=== PATIENT | female | born 1985 | race Caucasian/White ===

== ENCOUNTER 2018-12-10 11:25 | Emergency (ER) | payer BC ==
[2018-12-10 11:43] VITALS: BP 122/86
[2018-12-10] MEDS ORDERED: Azithromycin TAB* 250 MG PO ONE (11:50)
--- NOTE | 2018-12-10 11:59 | UC ---
Complaint Female HPI - HPI Summary HPI Summary: Her partner tested positive chlamydia--not having symptoms but would like to be tested today and receive treatment. - History Of Current Complaint Chief Complaint: UCGeneralIllness Stated Complaint: PERSONAL Time Seen by Provider: 12/10/18 11:38 Hx Obtained From: Patient Hx Last Menstrual Period: mirena IUD in place ?: No Onset/Duration: Sudden Onset Severity Initially: Mild Severity Currently: None Pain Intensity: 0 - Allergies/Home Medications Allergies/Adverse Reactions: Allergies Allergy/AdvReac Type Severity Reaction Status Date / Time No Known Allergies Allergy Verified 03/11/15 17:19 Home Medications: Home Medications Sertraline* [Zoloft*] 75 mg PO DAILY 12/10/18 [History Confirmed 12/10/18] PMH/Surg Hx/FS Hx/Imm Hx Previously Healthy: Yes Other History Of: Negative For: Anticoagulant Therapy - Surgical History Surgical History: None Surgery Procedure, Year, and Place: ERCP 10/12/2012 - Family History Known Family History: Positive: Hypertension - Social History Alcohol Use: Weekly Alcohol Amount: 3 drinks per week Substance Use Type: None Smoking Status (MU): Current Some Day Smoker Type: Cigarettes Amount Used/How Often: 2 cigarettes per week Length of Time of Smoking/Using Tobacco: 8+ years Have You Smoked in the Last Year: Yes Review of Systems All Other Systems Reviewed And Are Negative: Yes Constitutional: Positive: Negative Skin: Positive: Negative Eyes: Positive: Negative ENT: Positive: Negative Respiratory: Positive: Negative Cardiovascular: Positive: Negative Gastrointestinal: Positive: Negative Genitourinary: Positive: Negative Motor: Positive: Negative Neurovascular: Positive: Negative Musculoskeletal: Positive: Negative Neurological: Positive: Negative Psychological: Positive: Negative Is Patient Immunocompromised?: No Physical Exam Triage Information Reviewed: Yes Appearance: Well-Appearing, No Pain Distress, Well-Nourished Vital Signs: Initial Vital Signs Temp 98.4 F 12/10/18 11:38 Pulse 66 12/10/18 11:38 Resp 16 12/10/18 11:38 BP 122/86 12/10/18 11:38 Pulse Ox 98 12/10/18 11:38 Vital Signs Reviewed: Yes Eye Exam: Normal ENT Exam: Normal Dental Exam: Normal Neck exam: Normal Respiratory Exam: Normal Cardiovascular Exam: Normal Abdominal Exam: Normal Abdomen Description: Positive: Nontender, No Organomegaly, Soft, Other: - no vaginal discharge or other symptoms present Complaint Female Dx - Course Course Of Treatment: hx obtained, exam performed ,meds reviewed, exposed to partner with positive chlamydia. patient was tested and treated with 1000 mg of azithromycin - Differential Dx/Diagnosis Provider Diagnosis: Chlamydia contact, treated Discharge - Sign-Out/Discharge Documenting (check all that apply): Patient Departure All imaging exams completed and their final reports reviewed: No Studies - Discharge Plan Condition: Stable Disposition: HOME Patient Education Materials: Chlamydia (ED) Referrals: No Primary Care Phys,NOPCP [Primary Care Provider] - Additional Instructions: 1. you have been treated for chlaymdia today 2. We will run the test today. 3. no intercourse for 2 weeks 4. FOllow up as needed. - Billing Disposition and Condition Condition: STABLE Disposition: Home
[2018-12-12 13:26] LABS: Neisseria gonorrhoeae (GC) RNA Negative (Negative)
== END 2018-12-10 12:17 | disposition home or self-care (01) ==
LOC: UCCORT 11:25
DX: Z20.2 Contact with and (suspected) exposure to infections with a predominantly sexual mode of transmission (principal)
CPT/HCPCS: 87491; 87591; 99202; A9270-GY; G0463

== ENCOUNTER 2019-03-11 17:37 | Emergency (ER) | payer BC, OTHER ==
--- OUTSIDE RECORDS SUMMARY | 2019-03-11 17:46 | XMS REPORT | Continuity of Care Document ---
:1985 Author Organization [facility] Address [address] [place] [address] Phone Care Team Providers Name Role Phone Karlene Kaufman NP Unavailable Unavailable Allergies, Adverse Reactions, Alerts Substance Reaction Status No Known Allergies Active Medications Medication Instructions Dosage Effective Dates Status Comments (start - stop) Mirena 20 mcg/24 hr (5 Insert IU - Active years) intrauterine device ZOLOFT (unknown Not Available - Active strength) MULTIVITAMINS (unknown Not Available - Active strength) Problems Condition Effective Dates (start - Clinical Status Comments stop) Human immunodeficiency virus [HIV] - counseling Low grade intrepith lesion cyto smr crvx (LGSIL) Cervical high risk HPV DNA test positive Encounter for routine checking of intrauterine contracep dev Encounter for oth screening for malignant neoplasm of breast Encounter for screening for malignant neoplasm of cervix Encntr screen for infections w sexl mode of transmiss 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) (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) w/o 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 Candidiasis of vulva and vagina Encounter for routine checking of intrauterine contracep dev Human immunodeficiency virus [HIV] - counseling Encounter for screening for human - immunodeficiency virus Encntr screen for infections w sexl mode of transmiss Acute vaginitis Encntr for removal and reinsertion of uterin contracep dev STI Screening Procedures Procedure Date No information Results Test Name Date and Time Measure Units Reference Range Abnormal Flag Status Comments No information Advance Directives Directive Yes / No Effective Date File Name No information Encounters Encounter Practice Location Reason(s) Diagnoses Date Provider Providers Description For Visit Copied on Encounter [facility] [place] 6. Southern 9 [address] [place] [facility], [address] [place], [address], [place], [place], [address]. [id number], tel:[phone] [place] [phone] tel:[phone] [facility]- [facility] Referring [facility] [place] immunodeficiency 1-. Provider: Claire virus [HIV] 9 [address] counselingLow grade [place] [facility], [facility], [address], [address] [place] cyto smr crvx [place], [place] [address], [place], [place], (LGSIL)Cervical [place], [place], [place], [place] [address]. [place], [address]. [id number], test tel:[phone] tel:[phone] [place] positiveEncounter [phone] tel:[phone] for routine [id number] checking of intrauterine contracep dev [facility] Encounter for oth [facility] Referring [facility] [place] screening for . Provider: Claire malignant neoplasm 9 [address] of breastEncounter [place] [facility], [facility], [address], [address] [place] malignant neoplasm [place], [place] [address], [place], [place], of cervixEncntr [place], [place] [address]. [place], [address]. [id number], infections w sexl tel:+[phone] tel:[phone] [place] mode of [phone] tel:[phone] transmissEncntr for [id number] shaper hand exam (general) (routine) w/o 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Candidiasis of vulva and vaginaEncounter for routine checking of intrauterine contracep dev [facility] [place] Referring [facility] [place] immunodeficiency 7. Provider: Claire virus [HIV] 9 [address] [place] counselingEncounter [place], [address], [address], [address] [place] human [place], St, St, [place], [place], [place], [place] [address]. [place], [address]. [id number], for infections w tel:+[phone] tel:[phone] [place] sexl mode of [phone] tel: transmissAcute [id number] vaginitis [facility] Encntr for removal [facility] [place] and reinsertion of Mel. [facility] uterin contracep 6 [address] [place], [address] [place], , [place], [address], [id number], [place]. tel: [phone] [facility] STI Screening [place] [facility] [place] 0-201 [place]. Southern 5 [address] [place], [address] [place], St, [place], [address]. [id number], tel: [phone] tel:[phone] Family History Family Member Diagnosis Age At Onset 1st degree relative No hx of cancer of breast, colon, endometrium or ovary 1st degree relative No hx of coronary heart disease (female <65, male <55) Father Venous thromboembolism 58 Immunizations Vaccine Date Status Comments No information Payers Payer name Insurance type Covered constitution party ID Authorization(s) [facility] [id number] Social History Type Description Quantity Date Captured Comments Alcohol Use Details Unknown Caffeine Use Details Unknown Tobacco Use Status Smoking Status Current some day smoker Sex Female Vital Signs Date / Height Weight BMI Pulse Blood Temperature Respiratory Body Head BMI Pulse Inhaled Time: Rate Pressure Rate Surface Circumference percentile Ox Ox Area No information Chief Complaint And Reason For Visit No information Reason For Referral Reason For Referral No information Plan Of Treatment Date Type Action Status Goal Tobacco cessation counseling completed History Of Present Illness Encounter Date Complaint History Of Present Illness No information Functional Status Date Functional Assessment No information Medications Administered Medication Instructions Dosage Effective Dates (start - stop) Status Comments No information Instructions Date Instruction Additional Information No information Assessments Type Assessment Date No information Goals Health Concern Goal Type Priority Status Date No information Medical Equipment Description Device [place] Device Identifier Effective Dates (start - stop ) Status No information Mental Status Date Cognitive Assessment No information Health Concerns Observation Date No information Concern Status Date No information
--- OUTSIDE RECORDS SUMMARY | 2019-03-11 17:46 | XMS REPORT | Continuity of Care Document ---
:1985 Author Organization [facility] Address [address] [place] [address] Phone Care Team Providers Name Role Phone Karlene Kaufman NP Unavailable Unavailable Allergies, Adverse Reactions, Alerts Substance Reaction Status No Known Allergies Active Medications Medication Instructions Dosage Effective Status Comments Dates (start - stop) Mirena 20 mcg/24 hr Insert IU - Active (5 years) intrauterine device ZOLOFT (unknown Not Available - Active strength) MULTIVITAMINS Not Available - Active (unknown strength) fluconazole 150 mg take 1 tablet by 150 MG - No Longer tablet oral route once Active Problems Condition Effective Dates (start - Clinical [...] w sexl mode of transmiss 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 Other Fiber Locking Supervisor.Svc. STI Results Test Name Date and Time Measure Units Reference Range Abnormal Flag Status Comments No information Advance Directives Directive Yes / No Effective Date File Name No information Encounters Encounter Practice Location Reason(s) Diagnoses Date Provider Providers Description For Visit Copied on Encounter [facility] Referring [facility] [place] immunodeficiency 1-[place]. Provider: [place] virus [HIV] 9 [address] counselingLow grade [place] [facility], [facility], [address], [address] [place] cyto smr crvx [place], [place] [address], [place], [place], (LGSIL)Cervical [place], [place], [place], [place] [address]. [place], [address]. [id number], test tel:+[phone] tel:[phone] [place] positiveEncounter [phone] tel:[phone] for routine 600180 checking of intrauterine contracep dev [facility] Encounter for oth Par Referring [facility] [place] screening for Karlene. Provider: [place] malignant neoplasm 9 [address] of breastEncounter [place] [facility], [facility], [address], [address] [place] malignant neoplasm [place], [place], [place], [place], of cervixEncntr [place], [place] [address]. [place], [address]. [id number], infections w sexl tel:+[phone] tel:[phone] [place] mode of [id number] tel:[phone] transmissEncntr for [id number] bait tier exam (general) (routine) w/o 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Candidiasis of vulva and vaginaEncounter for routine checking of intrauterine contracep dev [facility] Human [place] Referring Parenthood [place] immunodeficiency 7-201 [place]. Provider: [place] virus [HIV] 9 [address] counselingEncounter [place] [facility], [address] [place] [address], [address], [address] [place] W [place] human [place], St, St, [place], [place], [place], [place] [address]. [place], [address]. [id number], for infections w tel:+60 tel:+607 [place] sexl mode of [phone] tel:+72 transmissAcute 836157 vaginitis [facility] Encntr for removal [facility] [place] and reinsertion of Mel. [facility] uterin contracep 6 [address] [place], [address] [place], , [place], [address], [id number], [place]. [place] tel:[phone] [facility] STI Screening [place] [facility] [place] 0-201 [place]. Southern 5 [address] [place], [address] [place], , [place], [address]. [id number], tel:+60 [place] [phone] tel:[phone] Family History Family Member Diagnosis Age At Onset 1st degree relative No hx of cancer of breast, colon, endometrium or ovary 1st degree relative No hx of coronary heart disease (female <65, male <55) Father Venous thromboembolism 58 Immunizations Vaccine Date Status Comments No information Payers Payer name Insurance type Covered democrat ID Authorization(s) [facility] [id number] Social History Type Description Quantity Date Captured Comments Alcohol Use Details Unknown Caffeine Use Unknown Details Tobacco Use Status Occasional cigarette smoker Smoking Status Current some day smoker Smoking Tobacco Use Cigarette: No Details Available Cigarette: 1 Cigarettes per day Details Sex Female Vital Signs Date / Height Weight BMI Pulse Blood Temperature Respiratory Body Head BMI Pulse Inhaled Time: Rate Pressure Rate Surface Circumference percentile Ox Ox Area 67.00 234.00 36.6 in lbs 5 mm[Hg] 1:55 kg/m PM eter (2) Chief Complaint And Reason For Visit No [...] Information No information Assessments Type Assessment Date assessment Human immunodeficiency virus [HIV] counseling assessment Low grade intrepith lesion cyto smr crvx (LGSIL) assessment Cervical high risk HPV DNA test positive assessment Encounter for routine checking of intrauterine contracep dev Goals Health Concern Goal Type Priority Status Date No information Medical Equipment Description Device [place] Device Identifier Effective Dates (start - stop ) Status No information Mental Status Date Cognitive Assessment No information Health Concerns Observation Date No information Concern Status Date No information
--- OUTSIDE RECORDS SUMMARY | 2019-03-11 17:46 | XMS REPORT | Continuity of Care Document ---
:1985 Author Organization [facility] Address [address] [place] [address] Phone Care Team Providers Name Role Phone Karlene Kaufman NP Unavailable Unavailable Allergies, Adverse Reactions, Alerts Substance Reaction Status No Known Allergies Active Medications Medication Instructions Dosage Effective Dates Status Comments (start - stop) fluconazole 150 mg take 1 tablet by 150 MG - Active tablet oral route once Mirena 20 mcg/24 hr Insert IU - Active (5 years) intrauterine device ZOLOFT (unknown Not Available - Active strength) MULTIVITAMINS Not Available - Active (unknown strength) Problems Condition Effective Dates (start - Clinical Status Comments stop) Encounter for oth screening for malignant neoplasm of breast Encounter for screening for malignant neoplasm of cervix Encntr screen for infections w sexl mode of transmiss 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/o 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 Candidiasis of vulva and vagina Encounter for routine checking of intrauterine contracep dev Human immunodeficiency virus [HIV] - counseling Encounter for screening for human - immunodeficiency virus Encntr screen for infections w sexl mode of transmiss Acute vaginitis Encntr for removal and reinsertion of uterin contracep dev STI Screening Procedures Procedure Date N.GONORRHOEAE, DNA, AMP PROB CHYLMD DNA, AMP PROBE SUREPATH HPV, DNA, AMP PROBE HIGH RISK TRICHOMONAS VAGIN, DIR PROBE PREV VISIT, EST, AGE 18-39 BLOOD PRESSURE Height/Weight BREAST EXAM OTHER Medical Services VAGINITIS RX Contraceptive Children'S Attendant.Svc. Other Children'S Attendant.Svc. STI WET SMEAR ASSAY OF BODY FLUID-PH Results Test Name Date and Time Measure Units Reference Range Abnormal Flag Status Comments Panel Description: Wet Mount Final Wet Mount 19:07:43 Hyphae/Cari: yesBudding yeast: Final noTrich: noClue cells: noWBCs: yes (few)Amine/Whiff test: negativepH: 4.0 NOTE: This patient has pending results not included in this document. Advance Directives Directive Yes / No Effective Date File Name No information Encounters Encounter Practice Location Reason(s) Diagnoses Date Provider Providers Description For Visit Copied on Encounter PREV VISIT, [facility] Referring EST, AGE [facility] [place] Person screening for Karlene. Provider: 18-39 [facility] Visit malignant neoplasm 9 [address] (chief of breastEncounter [facility], [facility], [facility] complaint) for screening for St, [address] [place] Vaginal malignant neoplasm [place], [place] [address], [place], [place], a/o [place] of cervixEncntr [place], [place] [address]. [place], [address]. [id number], (chief infections w sexl tel:+[phone] tel:[phone] [place] complaint) mode of [id number] tel:[phone] transmissEncntr for [id number] converter operator exam (general) (routine) w/o 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Candidiasis of vulva and vaginaEncounter for routine checking of intrauterine contracep dev [facility] Human [place] Referring Parenthood [place] immunodeficiency 7 [place]. Provider: [facility] virus [HIV] 9 [address] counselingEncounter [place], [address], [address], [address] [place] human [place], St, St, [place], [place], [place], [place] [address]. [place], [address]. [id number], for infections w tel: tel:+ [place] sexl mode of [phone] tel: transmissAcute [id number] vaginitis [facility] Encntr for removal [facility] [place] and reinsertion of Mel. [facility] uterin contracep 6 [address] [place], [address] [place], , [place], [address], [id number], [place]. [place] tel: [phone] [facility] STI Screening [place] [facility] [place] 0-201 [place]. Southern 5 [address] [place], [address] [place], , [place], [address]. [id number], tel: [phone] tel: [phone] Family History Family Member Diagnosis Age At Onset 1st degree relative No hx of cancer of breast, colon, endometrium or ovary 1st degree relative No hx of coronary heart disease (female <65, male <55) Father Venous thromboembolism 58 Immunizations Vaccine Date Status Comments No information Payers Payer name Insurance type Covered constitution party ID Authorization(s) [facility] [id number] Social History Type Description Quantity Date Captured [...] percentile Ox Ox Area 67.00 234.00 36.6 130/90 2019 in lbs 5 mm[Hg] 6:03 kg/m PM eter (2) Chief Complaint And Reason For Visit Most recent encounter only, dated '01/11/2019 17:30'. Well Person Visit ( chief complaint)Vaginal a/o Vulvar Burning (chief complaint). Description: Onset : 1 week ago. Location is vaginal and vulvar. The patient describes it as burning. The problem is with no change. Denies aggravating factors. Denies relieving factors. Pertinent negatives include bleeding, discharge, dyspareunia , parasites or persistent diarrhea. Reason For Referral Reason For Referral No information Plan Of Treatment Date Type Action Status No information History Of Present Illness Encounter Date Complaint History Of Present Illness Vaginal a/o Vulvar Burning Onset: 1 week ago. Location is vaginal and vulvar. The patient describes it as burning. The problem is with no change. Denies aggravating factors. Denies relieving factors. Pertinent negatives include bleeding, discharge, dyspareunia, parasites or persistent diarrhea. 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
--- OUTSIDE RECORDS SUMMARY | 2019-03-11 17:46 | XMS REPORT | Continuity of Care Document ---
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 [address] [place], [address] [place], St, [place], [address]. [id number], tel:[phone] tel:[phone] [facility] Encounter for oth Par Referring [facility] [place] screening for 8Novia. Provider: Claire malignant neoplasm 9 [address] of breastEncounter [place], [place], [address], [address] malignant neoplasm [place], [address], St, [place], of cervixEncntr [place], [place] [address]. [place], [address]. [id number], infections w sexl tel:[phone] tel:[phone] [place] mode of [phone] tel:[phone] transmissEncntr for [id number] farmworker cranberry exam (general) (routine) w/o 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Candidiasis of vulva and vaginaEncounter for routine checking of intrauterine contracep dev [facility] Human [place] Referring Parenthood [place] immunodeficiency 7 Cielo. Provider: [facility] virus [HIV] 9 [address] counselingEncounter [place], [address] [place], [address], [address] [place] human [place], St, St, [place], [place], [place], [place] [address]. [place], [address]. [id number], for infections w tel:[phone] tel:[phone] [place] sexl mode of [phone] tel:[phone] transmissAcute [id number] vaginitis [facility] Encntr for removal [facility] [place] and reinsertion of Mel. [facility] uterin contracep 6 [address] [place], [address], [address] [place], St, [place], [address], [id number], [place]. [place] tel:[phone] [facility] STI Screening [facility] [place] [address]. Southern 5 [address] [place], [address], [address] [place], St, [place], [address]. [id number], tel:[phone] [phone] Family History Family Member Diagnosis Age At Onset 1st degree relative No hx of cancer of breast, colon, endometrium or ovary 1st degree relative No hx of coronary heart disease (female <65, male <55) Father Venous thromboembolism 58 Immunizations Vaccine Date Status Comments No information Payers Payer name Insurance type Covered alliance party ID Authorization(s) [facility] [id number] Social History Type Description Quantity Date Captured [...] Plan Of Treatment Date Type Action Status Appointment JUAN NATHAN BOOKED History Of Present Illness Encounter Date Complaint History Of Present Illness No information Functional Status Date Functional Assessment No information Medications Administered Medication Instructions Dosage Effective Dates (start - stop) Status Comments No information Instructions Date Instruction Additional Information No information Assessments Type Assessment Date No information Goals Health Concern Goal Type Priority Status Date No information Medical Equipment Description Device [place] Device Identifier Effective Dates (start - stop ) Status No information Mental Status Date Cognitive Assessment No information Health Concerns Observation Date No information Concern Status Date No information
--- OUTSIDE RECORDS SUMMARY | 2019-03-11 17:46 | XMS REPORT | Continuity of Care Document ---
:1985 Author Organization [facility] Address [address] [place] [address] Phone Care Team Providers Name Role Phone [...] w sexl mode of transmiss Encntr for nurse obgyn exam (general) (routine) w/o 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 Candidiasis [...] Visit Copied on [facility] 9 [address] [place], [address] [place], St, [place], [place], [address]. [id number], tel:[phone] tel:[phone] [facility] Encounter for oth Par [facility]erring [facility] [place] screening for 8Novia. Provider: Claire malignant neoplasm 9 [address] of breastEncounter [place], [place], [address], [address] malignant neoplasm [place], [address], St, [place], of cervixEncntr [place], [place] [address]. [place], [address]. [id number], infections w sexl tel:[phone] tel:[phone] [place] mode of [phone] [id number] tel:[phone] transmissEncntr for [id number] nurse obgyn exam (general) (routine) w/o 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Candidiasis of vulva and vaginaEncounter for routine checking of intrauterine contracep dev [facility] [place] Referring Parenthood [place] immunodeficiency 7 Cielo. Provider: [facility] virus [HIV] 9 [address] counselingEncounter [place], [address] [place], [address], [address] W Ruby human [place], St, St, [place], [place], [place], [place] [address]. [place], [address]. [id number], for infections w tel:[phone] tel:[phone] [place] sexl mode of [phone] tel:[phone] transmissAcute [id number] vaginitis [facility] Encntr for removal [facility] [place] and reinsertion of Mel. [facility] uterin contracep 6 [address] [place], [address], [address] [place], St, [place], [address], [id number], [place]. [place] tel:[phone] [facility] [place] [address]. [facility] 5 [address] [place], [address], [address] [place], St, [place], [address]. [id number], tel:[phone] [phone] Family History Family Member Diagnosis Age At Onset 1st degree relative No hx of cancer of breast, colon, endometrium or ovary 1st degree relative No hx of coronary heart disease (female <65, male <55) Father Venous thromboembolism 58 Immunizations Vaccine Date Status Comments No information Payers Payer name Insurance type Covered alliance party ID Authorization(s) [facility] [id number] Social History Type Description Quantity Date Captured [...] Date No information Medical Equipment Description Device [place] Device Identifier Effective Dates (start - stop ) Status No information Mental Status Date Cognitive Assessment No information Health Concerns Observation Date No information Concern Status Date No information
[2019-03-11 18:00] VITALS: BP 121/70
--- NOTE | 2019-03-11 18:35 | UC ---
Skin Complaint HPI - HPI Summary HPI Summary: C/O swelling at the piercing in the left ear. No fevers. Mild pain. no warmth. - History of Current Complaint Chief Complaint: UCEar Time Seen by Provider: 03/11/19 18:20 Stated Complaint: LEFT EAR COMPLAINT Hx Obtained From: Patient Hx Last Menstrual Period: IUD ?: No Onset/Duration: Gradual Onset, Lasting Weeks - 4, Still Present Onset Severity: Mild Current Severity: Mild Pain Intensity: 2 Location: Ear (Left) Character: Redness Alleviating Factor(s): Other - removed ear ring Associated Signs & Symptoms: Positive: Negative Related History: Trauma - ear piercing - Allergy/Home Medications Allergies/Adverse Reactions: Allergies Allergy/AdvReac Type Severity Reaction Status Date / Time No Known Allergies Allergy Verified 03/11/19 18:14 Home Medications: Home Medications Levonorgestrel (Iud) [Mirena IUD] 20 mcg IU SEE INSTRUCTIONS 03/11/19 [History Confirmed 03/11/19] PMH/Surg Hx/FS Hx/Imm Hx Previously Healthy: Yes Other History Of: Negative For: Anticoagulant Therapy - Surgical History Surgical History: None Surgery Procedure, Year, and Place: ERCP 10/12/2012 - Family History Known Family History: Positive: Hypertension, Diabetes - Social History Occupation: Employed Full-time Lives: Alone Alcohol Use: None Alcohol Amount: 3 drinks per week Substance Use Type: None Smoking Status (MU): Former Smoker Type: Cigarettes Amount Used/How Often: 2 cigarettes per week Length of Time of Smoking/Using Tobacco: 8+ years Have You Smoked in the Last Year: Yes Review of Systems All Other Systems Reviewed And Are Negative: Yes Skin: Positive: Other - lump in the left ear Physical Exam Triage Information Reviewed: Yes Appearance: Well-Appearing, No Pain Distress, Well-Nourished Vital Signs: Initial Vital Signs Temp 97.9 F 03/11/19 17:57 Pulse 58 03/11/19 17:57 Resp 16 03/11/19 17:57 BP 121/70 03/11/19 17:57 Pulse Ox 100 03/11/19 17:57 Vital Signs Reviewed: Yes Eyes: Positive: Conjunctiva Clear ENT: Positive: Pharynx normal, TMs normal, Other - prominence inferior to the piercing. Neck exam: Normal Respiratory Exam: Normal Cardiovascular Exam: Normal Musculoskeletal Exam: Normal Neurological Exam: Normal Psychological Exam: Normal Skin: Positive: Significant Lesion(s) - Pyogenic granuloma left ear piercing. Images Head: 1 - 3mm pyogenic granuloma Course/Dx - Differential Diagnoses - Skin Complaint Differential Diagnoses: Cellulitis, Contact Dermatitis, Scarl[place] - Diagnoses Provider Diagnosis: Pyogenic granuloma of skin Discharge ED - Sign-Out/Discharge Documenting (check all that apply): Patient Departure All imaging exams completed and their final reports reviewed: No Studies - Discharge Plan Condition: Stable Disposition: HOME Prescriptions: Betamethasone Dipropionate [Betamethasone Diprop Augmented] 1 gm TP BID #15 gel..gram. Mupirocin 2% OINT* [Bactroban 2 % Oint*] 1 applic TOPICAL TID #1 tube Patient Education Materials: Mupirocin (On the skin), Betamethasone Dipropionate, Augmented (On the skin) Referrals: Meenakshi Graham, BUSINESS SERVICES ADMINISTRATOR [Primary Care Provider] - Additional Instructions: If not improving or resolving, see if Meenakshi would inject some cortisone into it. - Billing Disposition and Condition Condition: STABLE Disposition: Home
== END 2019-03-11 18:47 | disposition home or self-care (01) ==
LOC: UCCORT 17:37
DX: L98.0 Pyogenic granuloma (principal); Z87.891 Personal history of nicotine dependence
CPT/HCPCS: 99212; G0463

== ENCOUNTER 2019-04-27 08:08 | Emergency (ER) | payer BC ==
[2019-04-27 08:26] VITALS: BP 121/74
--- NOTE | 2019-04-27 08:39 | ED ---
Throat Pain/Nasal Congestion - HPI Summary HPI Summary: 33 yr old female with the complaint of sinus pressure, post nasal drip, coughing. Onset a week ago, and she has had increasing pressure in the sinuses , and thick mucous and some blood in mucous from the nose at times. She has chills. No dizziness. No other complaints. - History of Current Complaint Chief Complaint: UCGeneralIllness Time Seen by Provider: 04/27/19 08:31 - Allergies/Home Medications Allergies/Adverse Reactions: Allergies Allergy/AdvReac Type Severity Reaction Status Date / Time No Known Allergies Allergy Verified 04/27/19 08:26 PMH/Surg Hx/FS Hx/Imm Hx Endocrine/Hematology History: Denies: Hx Anticoagulant Therapy, Hx Diabetes, Hx Thyroid Disease Cardiovascular History: Denies: Hx Hypertension, Hx Pacemaker/ICD Respiratory History: Denies: Hx Asthma, Hx Chronic Obstructive Pulmonary Disease (COPD), Hx Sleep Apnea GI History: Reports: Hx Gall Bladder Disease, Other GI Disorders - Pancreatitis Denies: Hx Ulcer History: Reports: Other Problems/Disorders - UTI 2 WEEK AGO Denies: Hx Renal Disease Sensory History: Denies: Hx Contacts or Glasses, Hx Hearing Aid Opthamlomology History: Denies: Hx Contacts or Glasses Neurological History: Denies: Hx Seizures Psychiatric History: Reports: Hx Anxiety - IN THE PAST, Hx Depression - IN THE PAST Denies: Hx Panic Disorder, Hx Substance Abuse - Surgical History Surgery Procedure, Year, and Place: ERCP 10/12/2012 Hx Anesthesia Reactions: No - Immunization History Date of Tetanus Vaccine: Unk Date of Influenza Vaccine: None Infectious Disease History: No Infectious Disease History: Denies: Hx Clostridium Difficile, Hx Hepatitis, Hx Human Immunodeficiency Virus (HIV), Hx of Known/Suspected MRSA, Hx Shingles, Hx Tuberculosis, Hx Known/ Suspected VRE, Hx Known/Suspected VRSA, History Other Infectious Disease, Traveled Outside the [place] in Last 30 Days - Family History Known Family History: Positive: Hypertension, Diabetes - Social History Occupation: Employed Full-time Alcohol Use: Occasionally Alcohol Amount: 3 drinks per week Substance Use Type: Reports: None Smoking Status (MU): Former Smoker Type: Cigarettes Amount Used/How Often: 2 cigarettes per week Length of Time of Smoking/Using Tobacco: 8+ years Have You Smoked in the Last Year: Yes Review of Systems Positive: Chills Positive: Other - sinus infection, pain All Other Systems Reviewed And Are Negative: Yes Physical Exam Triage Information Reviewed: Yes Vital Signs On Initial Exam: Initial Vitals Temp Pulse Resp BP Pulse Ox 97.3 F 75 16 121/74 100 04/27/19 08:21 04/27/19 08:21 04/27/19 08:21 04/27/19 08:21 04/27/19 08:21 Vital Signs Reviewed: Yes Appearance: Positive: Well-Appearing, No Pain Distress Skin: Positive: Warm, Skin Color Reflects Adequate Perfusion Head/Face: Positive: Normal Head/Face Inspection Eyes: Positive: EOMI ENT: Positive: Nasal congestion, Nasal drainage, TM red - right with erythema, Sinus tenderness Neck: Positive: Supple, Nontender Respiratory/Lung Sounds: Positive: Clear to Auscultation, Breath Sounds Present Cardiovascular: Positive: RRR. Negative: Murmur Abdomen Description: Negative: Distended Musculoskeletal: Positive: Strength/ROM Intact Neurological: Positive: Sensory/Motor Intact, Alert, Oriented to Person Place, Time, CN Intact II-III, Normal Gait, Speech Normal Psychiatric: Positive: Normal Diagnostics - Vital Signs Vital Signs Temp Pulse Resp BP Pulse Ox 04/27/19 08:21 97.3 F 75 16 121/74 100 - Laboratory Lab Statement: Any lab studies that have been ordered have been reviewed, and results considered in the medical decision making process. EENT Course/Dx - Course Course Of Treatment: 33 yr old with sinusitis. PLan Augmentin DC home. - Diagnoses Provider Diagnoses: Sinusitis Discharge ED - Sign-Out/Discharge Documenting (check all that apply): Patient Departure All imaging exams completed and their final reports reviewed: No Studies - Discharge Plan Condition: Good Disposition: HOME Prescriptions: Amoxicillin/Clavulanate TAB* [Augmentin TAB 875*] 875 mg PO BID #20 tab Patient Education Materials: Sinusitis (ED) Referrals: Meenakshi Graham NP [Primary Care Provider] - 2 Days - Billing Disposition and Condition Condition: GOOD Disposition: Home
== END 2019-04-27 08:40 | disposition home or self-care (01) ==
LOC: UCCORT 08:08
DX: J32.9 Chronic sinusitis, unspecified (principal); R09.82 Postnasal drip; R05 Cough; Z87.891 Personal history of nicotine dependence
CPT/HCPCS: 99212; G0463

== ENCOUNTER 2019-06-17 15:44 | Emergency (ER) | payer BC ==
[2019-06-17 16:36] VITALS: BP 129/66
[2019-06-17] MEDS ORDERED: Acetaminophen TAB* 325 MG PO ONE (16:45)
--- NOTE | 2019-06-17 17:01 | UC ---
FLU HPI - HPI Summary HPI Summary: Pt presents with c/o sudden onset of fever, chills body aches, cough, "burning in chest" and ST X 2 days. - History of Current Complaint Chief Complaint: UCGeneralIllness Stated Complaint: FLU SYMPTOMS Time Seen by Provider: 06/17/19 16:40 Hx Obtained From: Patient Hx Last Menstrual Period: does not have periods d/t IUD ?: No Onset/Duration: Sudden Onset, Lasting Days, Still Present Severity Currently: Mild Severity Initially: Moderate Pain Intensity: 7 Associated Signs & Symptoms: Positive: Fever, Myalgia, Cough, Sore Throat, Headache Related Hx: Possible Flu/Infectious Exposure - Risk Factors Influenza Risk Factors: Negative - Allergy/Home Medications Allergies/Adverse Reactions: Allergies Allergy/AdvReac Type Severity Reaction Status Date / Time No Known Allergies Allergy Verified 06/17/19 16:36 Home Medications: Home Medications Multivitamin [Multivitamins] 1 cap PO DAILY 06/17/19 [History Confirmed 06/17/19 ] PMH/Surg Hx/FS Hx/Imm Hx Previously Healthy: Yes Other History Of: Negative For: Anticoagulant Therapy - Surgical History Surgical History: Yes Surgery Procedure, Year, and Place: ERCP 10/12/2012. [place] - Family History Known Family History: Positive: Hypertension, Diabetes - Social History Occupation: Employed Full-time Lives: With Family Alcohol Use: Rare Alcohol Amount: 3 drinks per week Substance Use Type: None Smoking Status (MU): Former Smoker Type: Cigarettes Amount Used/How Often: 2 cigarettes per week Length of Time of Smoking/Using Tobacco: 8+ years Have You Smoked in the Last Year: Yes Review of Systems All Other Systems Reviewed And Are Negative: Yes Constitutional: Positive: Fever, Chills, Fatigue Skin: Positive: Negative Eyes: Positive: Negative ENT: Positive: Sore Throat Respiratory: Positive: Cough Cardiovascular: Positive: Negative Gastrointestinal: Positive: Negative Genitourinary: Positive: Negative Motor: Positive: Negative Neurovascular: Positive: Negative Musculoskeletal: Positive: Myalgia Neurological: Positive: Negative Psychological: Positive: Negative Is Patient Immunocompromised?: No Physical Exam Triage Information Reviewed: Yes Appearance: Ill-Appearing, Other: - pt was diaphoretic, appeared ill, c/o burning chest. Vital Signs: Initial Vital Signs Temp 102.6 F 06/17/19 16:30 Pulse 116 06/17/19 16:30 Resp 18 06/17/19 16:30 BP 129/66 06/17/19 16:30 Pulse Ox 100 06/17/19 16:30 Vital Signs Reviewed: Yes Eye Exam: Normal ENT: Positive: Pharyngeal erythema Dental Exam: Normal Neck exam: Normal Respiratory Exam: Normal Respiratory: Positive: Normal breath sounds Cardiovascular Exam: Normal Cardiovascular: Positive: Tachycardia Musculoskeletal Exam: Normal Neurological Exam: Normal Psychological Exam: Normal Skin Exam: Normal Flu Course/Dx - Differential Dx/Diagnosis Differential Diagnosis/HQI/PQRI: Bronchitis, Influenza, Pneumonia, Upper Respiratory Infection Provider Diagnosis: Pneumonia Discharge ED - Sign-Out/Discharge Documenting (check all that apply): Patient Departure All imaging exams completed and their final reports reviewed: No Studies - Discharge Plan Condition: Stable Disposition: HOME Prescriptions: Azithromycin TAB* [Zithromax TAB (Z-CHRISTIANO) 250 mg #6 tabs] 2 tab PO .TODAY, THEN 1 DAILY #1 christiano Benzonatate CAP* [Tessalon 100 MG CAP*] 100 mg PO TID PRN #30 cap PRN Reason: Cough Codeine Phosphate/Guaifenesin [Guaifen-Codeine 100-10 mg/5 ml] 5 ml PO BEDTIME PRN #20 ml MDD 5 ml PRN Reason: Cough predniSONE 20 mg TAB [Deltasone 20 MG TAB*] 60 mg PO DAILY #12 tab Patient Education Materials: Acute Bronchitis (ED) Referrals: Meenakshi Graham WASHER ASSEMBLER [Primary Care Provider] - If Needed Additional Instructions: Please follow up with your PCP as needed. If your symptoms worsen please seek care at the closest emergency room. - Billing Disposition and Condition Condition: STABLE Disposition: Home
[2019-06-17 17:09] LABS: Influenza A Molecular Negative (Negative); Influenza B Molecular Negative (Negative)
== END 2019-06-17 17:32 | disposition home or self-care (01) ==
LOC: UCCORT 15:44
DX: J18.9 Pneumonia, unspecified organism (principal); Z87.891 Personal history of nicotine dependence
CPT/HCPCS: 87651; 99212; A9270-GY; G0463